=== PATIENT | male | born 1940 | race Caucasian/White ===

== ENCOUNTER 2016-08-24 14:44 | Inpatient (IN) | payer MEDICARE, MEDICAID ==
[2016-08-24] MEDS ORDERED: Sodium Chloride 0.9% 1,000 ML IV ONE ×2 (15:12→16:31)
[2016-08-24] MEDS ORDERED: Albuterol-Ipratrop 3 mg / 0.5 (3 ml) UD INH STA (15:13)
[2016-08-24 15:36] LABS: ABG ALLEN TEST N; DRAW SITE RB
[2016-08-24 15:39] LABS: BASO % 0.5 % (0.0-2.0); EOS # 0.7 K/uL (0.0-0.7); EOS % 10.5 % (0.0-4.0); HEMATOCRIT 42.5 % (35.0-51.0); LYMPH # 2.5 K/uL (1.0-4.3); LYMPH % 36.2 % (20.0-40.0); MEAN CELL VOLUME 97.9 fL (80.0-94.0); MEAN CORPUSCULAR HEMOGLOBIN 32.3 pg (27.0-31.0); MEAN PLATELET VOLUME 7.4 fL (7.2-11.7); MONO # 0.4 K/uL (0.0-0.8); MONO % 6.1 % (0.0-10.0); NRBC % 0.2 % (0.0-2.0); RED CELL DISTRIBUTION WIDTH 14.8 % (11.5-14.5); WHITE BLOOD COUNT 6.9 K/uL (4.8-10.8)
[2016-08-24 15:46] LABS: CHLORIDE 99 mmol/L (98-107); POTASSIUM 3.8 mmol/L (3.6-5.2); SODIUM 138 mmol/L (132-148)
[2016-08-24 15:48] LABS: GFR AFRICAN-AMERICAN > 60
[2016-08-24 15:49] LABS: ALB/GLOB RATIO 1.1 (1.0-2.1); ALKALINE PHOSPHATASE 72 U/L (38-126); ALT/SGPT 16 U/L (21-72); AST/SGOT 26 U/L (17-59); BILIRUBIN,TOTAL 0.5 mg/dL (0.2-1.3); BLOOD UREA NITROGEN 7 mg/dL (9-20); CALCIUM 9.1 mg/dl (8.6-10.4); CARBON DIOXIDE 23 mmol/L (22-30); GLUCOSE,RANDOM 99 mg/dL (75-110)
[2016-08-24 15:50] LABS: ALCOHOL SERUM 270 mg/dl (0-10)
--- NOTE | 2016-08-24 15:58 | CT ---
PROCEDURE: CT HEAD WITHOUT CONTRAST. HISTORY: change of mental status, intox COMPARISON: Comparison is made to 11/21/2015 TECHNIQUE: Axial computed tomography images were obtained through the head/brain without intravenous contrast. Radiation dose: Total exam DLP = 898.46 mGy-cm. This CT exam was performed using one or more of the following dose reduction techniques: Automated exposure control, adjustment of the mA and/or kV according to patient size, and/or use of iterative reconstruction technique. FINDINGS: HEMORRHAGE: No intracranial hemorrhage. BRAIN: No mass effect or edema. Atrophy and mild chronic microvascular white matter ischemic changes are again seen. VENTRICLES: Unremarkable. No hydrocephalus. CALVARIUM: Unremarkable. PARANASAL SINUSES: Mucosal thickening seen in the left sphenoid and ethmoid sinuses. Mild mucosal thickening seen in the left frontal sinus. MASTOID AIR CELLS: Unremarkable as visualized. No inflammatory changes. OTHER FINDINGS: None. IMPRESSION: No evidence of acute intracranial hemorrhage intracranial collection mass effect or midline shift. [id number] atrophy and mild chronic microvascular ischemic disease. Mild sinuses mucosal disease.
--- NOTE | 2016-08-24 16:15 | C.PDOC ---
History Of Present Illness 75 year old male presents to the ED by EMS after being found intoxicated in public and friends were concerned with his intoxication level or potentially diminished mental status. Patient states he drinks daily, appears disheveled, and alcohol on breath upon arrival. He denies any diarrhea, vomiting, or complaints at this time. Time Seen by Provider: 08/24/16 15:01 Chief Complaint (Nursing): Substance Abuse History Per: Patient, EMS History/Exam Limitations: no limitations Onset/Duration Of Symptoms: Hrs Additional History Per: Friend Past Medical History Reviewed: Historical Data, Nursing Documentation, Vital Signs Vital Signs: Last Vital Signs Temp 97.6 F 08/24/16 14:51 Pulse 79 08/24/16 15:33 Resp 17 08/24/16 15:33 BP 91/54 L 08/24/16 15:33 Pulse Ox 100 08/24/16 16:21 - Medical History PMH: Arthritis, COPD Family History: States: Unknown Family Hx - Social History Hx Tobacco Use: No Hx Alcohol Use: Yes Hx Substance Use: No - Immunization History Hx Tetanus Toxoid Vaccination: No Hx Influenza Vaccination: No Hx Pneumococcal Vaccination: No Review Of Systems Constitutional: Negative for: Fever, Chills, Sweats Cardiovascular: Negative for: Chest Pain, Palpitations Respiratory: Negative for: Cough, Shortness of Breath Gastrointestinal: Negative for: Nausea, Vomiting, Abdominal Pain, Diarrhea Physical Exam - Physical Exam Appears: Non-toxic, No Acute Distress, Other (disheveled and EtOH on breath ) Skin: Warm, Dry, No Rash Head: Atraumatic Eye(s): bilateral: Normal Inspection Oral Mucosa: Moist Neck: Normal ROM, Supple Chest: Symmetrical Cardiovascular: Rhythm Regular, No JVD Respiratory: No Rales, Rhonchi (scattered rhonci throughout lungs ), No Stridor , No Wheezing Gastrointestinal/Abdominal: Soft, No Tenderness, No Distention, No Guarding, No Rebound Extremity: Normal ROM, No Tenderness ED Course And Treatment - Laboratory Results Result Diagrams: 08/24/16 15:31 08/24/16 15:31 Lab Interpretation: Normal (trop neg, etoh 270 H, ABG wnl) ECG: Interpreted By Me ECG Rhythm: Sinus Rhythm, R BBB ECG Interpretation: Normal Rate From EC O2 Sat by Pulse Oximetry: 100 (room air ) Pulse Ox Interpretation: Normal - Radiology CXR: Interpreted by Me CXR Interpretation: Yes: Infiltrates (? plate atalectasis vs b/l lower lobe PNA) - Other Rad head CT X-Ray: Read By Radiologist (no acute findings) Reevaluation Time: 16:28 Reassessment Condition: Improved - Physician Consult Information Outcome Of Conversation: 1630: d/w Hospitalist- catering coordinator Medicine- ok for Tele Obs Disposition Doctor Will See Patient In The: Hospital Counseled Patient/Family Regarding: Studies Performed, Diagnosis - Disposition Disposition: HOSPITALIZED Disposition Time: 16:30 Condition: FAIR - Clinical Impression Clinical Impression: Alcohol intoxication, COPD exacerbation, Change in mental state - Scribe Statement The provider has reviewed the documentation as recorded by the Scribe Dana Doshi All medical record entries made by the Scribe were at my direction and personally dictated by me. I have reviewed the chart and agree that the record accurately reflects my personal performance of the history, physical exam, medical decision making, and the department course for this patient. I have also personally directed, reviewed, and agree with the discharge instructions and disposition.
[2016-08-24] MEDS ORDERED: cefTRIAXone IV 1 gm in Dextros 50 ML IV STA (16:31)
[2016-08-24] MEDS ORDERED: Azithromycin 500 MG in Sodium Chloride 0.9% 250 ML IVPB STA (16:31)
[2016-08-24] MEDS ORDERED: cefTRIAXone IV 1 gm in Dextros 50 ML IVPB ONE (16:40)
[2016-08-24] MEDS ORDERED: Azithromycin 500mg/250ML NS 500 MG/250 ML BAG IVPB ONE (16:40)
--- NOTE | 2016-08-24 16:57 | RAD ---
PROCEDURE: CHEST RADIOGRAPH, 1 VIEW HISTORY: SOB COMPARISON: Comparison is made to 02/01/2016 FINDINGS: LUNGS: Persistent elevation of the right hemidiaphragm. Prominent lung markings and reticular opacities are again seen. The lungs appear improved compared to the previous exam. PLEURA: No pneumothorax or pleural fluid seen. CARDIOVASCULAR: Normal. OSSEOUS STRUCTURES: No significant abnormalities. VISUALIZED UPPER ABDOMEN: Normal. OTHER FINDINGS: None. IMPRESSION: Prominent lung markings and small reticular opacities again seen. Elevation of the right hemidiaphragm.
[2016-08-24] MEDS ORDERED: Albuterol-Ipratrop 3 mg / 0.5 (3 ml) UD ONE ×2 (17:09→19:53)
[2016-08-24 17:15] LABS: URINE BILIRUBIN NEGATIVE (NEGATIVE); URINE BLOOD NEGATIVE (NEGATIVE); URINE COLOR Straw (YELLOW); URINE GLUCOSE (UA) NORMAL (Normal); URINE KETONE NEGATIVE (NEGATIVE); URINE LEUKOCYTE ESTERASE NEG Leu/uL (Negative); URINE PROTEIN NEGATIVE (NEGATIVE); URINE UROBILINOGEN NORMAL mg/dL (0.2-1.0); WBC URINE < 1 /hpf (0-5)
[2016-08-24] MEDS ORDERED: Multivitamin (MVI) 10 ML, Thiamine 100 MG, Folic Acid 1 MG in Sodium Chloride 0.9% 1,00... IV SCH (17:15)
[2016-08-24] MEDS ORDERED: Moxifloxacin IV 400mg/250ml NS 400 MG/250 ML BAG IVPB SCH (17:15)
[2016-08-24] MEDS ORDERED: guaiFENesin 100 mg/5 ml Syrup UD PO PRN (17:18)
--- NOTE | 2016-08-24 17:24 | CP.PCM.HP ---
<Christina Agosto - Last Filed: 08/24/16 17:19> History of Present Illness - History of Present Illness History of Present Illness: HPI: Patient is a 75 year old male with PMHx of COPD and alcohol use disorder presents to the ED after being found intoxicated in public. At time of examination the patient is still intoxicated and not cooperative with questions. Patient can not say why he is in the ED and changes the subject. Patient unable to quantify how much alcohol he drank this morning. Will attempt to obtain history of ROS when patient is sober. Other history obtained from patient's previous records. PMD: none PMHx: COPD Social Hx: could not be obtained Surgical Hx: could not be obtained Allergies: NKDA Present on Admission - Present on Admission Any Indicators Present on Admission: No Review of Systems - Review of Systems Systems not reviewed;Unavailable: Intoxicated, Uncooperative Past Patient History - Tetanus Immunizations Tetanus Immunization: Unknown - Past Medical History & Family History Past Medical History?: Yes - Past Social History Smoking Status: Heavy Smoker > 10 Cigarettes Daily - CARDIAC Other/Comment: unknown secondary to patient intoxication - PULMONARY Hx Chronic Obstructive Pulmonary Disease (COPD): Yes - NEUROLOGICAL Hx Neurological Disorder: No Other/Comment: unknown secondary to patient intoxication - HEENT Other/Comment: unknown secondary to patient intoxication - RENAL Hx Chronic Kidney Disease: No - ENDOCRINE/METABOLIC Hx Endocrine Disorders: No Other/Comment: unknown secondary to patient intoxication - HEMATOLOGICAL/ONCOLOGICAL Hx Blood Disorders: No Other/Comment: unknown secondary to patient intoxication - INTEGUMENTARY Other/Comment: unknown secondary to patient intoxication - MUSCULOSKELETAL/RHEUMATOLOGICAL Hx Arthritis: Yes - GASTROINTESTINAL Other/Comment: unknown secondary to patient intoxication - GENITOURINARY/GYNECOLOGICAL Other/Comment: unknown secondary to patient intoxication - PSYCHIATRIC Hx Substance Use: No - SURGICAL HISTORY Hx Surgeries: No Other/Comment: unknown secondary to patient intoxication - ANESTHESIA Hx Anesthesia: No Hx Anesthesia Reactions: No Meds Allergies/Adverse Reactions: Allergies Allergy/AdvReac Type Severity Reaction Status Date / Time No Known Allergies Allergy Verified 02/01/16 11:46 Physical Exam - Constitutional Appears: No Acute Distress, Unkempt Additional comments: Intoxicated - Head Exam Head Exam: ATRAUMATIC, NORMOCEPHALIC - Eye Exam Eye Exam: EOMI, Normal appearance - ENT Exam ENT Exam: Mucous Membranes Dry - Respiratory Exam Respiratory Exam: Rhonchi (rhonchi greater in bilateral lower lobes with inspiratory wheezing heard throughout ), Wheezes, NORMAL BREATHING PATTERN. absent: Accessory Muscle Use, Respiratory Distress - Cardiovascular Exam Cardiovascular Exam: REGULAR RHYTHM, +S1, +S2. absent: Tachycardia, Irregular Rhythm - GI/Abdominal Exam GI & Abdominal Exam: Soft. absent: Distended, Firm - Extremities Exam Extremities exam: Positive for: normal inspection. Negative for: pedal edema - Neurological Exam Neurological exam: Alert - Psychiatric Exam Psychiatric exam: Normal Mood Additional comments: intoxicated - Skin Skin Exam: Dry, Intact, Normal Color, Warm Results - Vital Signs Recent Vital Signs: Last Vital Signs Temp 97.6 F 08/24/16 14:51 Pulse 70 08/24/16 16:00 Resp 14 08/24/16 16:00 BP 106/55 L 08/24/16 16:00 Pulse Ox 100 08/24/16 16:31 - Labs Result Diagrams: 08/24/16 15:31 08/24/16 15:31 Assessment & Plan - Assessment and Plan (Free Text) Assessment: 1. Pneumonia * CXR- prominent lung markings and small reticular opacities * Afebrile, no leukocytosis * Patient has history of pneumonia (last treated in 01/2016), consider aspiration pnuemonia due to alcohol abuse * Received Azithromycin IV and Ceftriaxone IV x1 in ED * Start Avelox 400mg IV daily and Vanco 1gm IV daily * Duonebs 3ml INH q6h [place] * Robitussin 100ml q4h prn * f/u legionella, mycoplasma, influenza, procalcitonin * ABG 7.33/43/104/22.4 * SpO2 100% on 2L NC * f/u blood culture, sputum culture 2. Hypotension * BP 85/48 on admission * Received 1L bolus in ED--> BP 91/54 * Continue IV fluid bolus. If BP remains low will consider ICU consult 3. Hx COPD * Solumedrol 40mg IV q8h * Duonebs 3ml INH q6h [place] 4. Alcohol use disorder * Alcohol level 270 * Librium taper * [facility] protocol- seizure precautions, aspiration precautions, fall risk * Ativan 1mg IV q2h prn withdrawal * Banana bag @100cc/hr * Alcohol cessation counseling 5. Prophylactic measures * Lovenox 40mg SC daily * Protonix 40mg IV daily * SCDs <Rosales,Joe M - Last Filed: 09/01/16 13:03> Results - Vital Signs Recent Vital Signs: Last Vital Signs Temp 98.2 F 08/29/16 15:00 Pulse 92 H 08/29/16 15:30 Resp 20 08/29/16 15:00 BP 98/62 L 08/29/16 15:00 Pulse Ox 98 08/29/16 15:15 - Labs Result Diagrams: 08/28/16 19:01 08/29/16 07:05 Attending/Attestation - Attestation I have personally seen and examined this patient.: Yes I have fully participated in the care of the patient.: Yes I have reviewed all pertinent clinical information: Yes Notes (Text): 09/01/16 13:02 Patient was seen and examined at bedside with the resident at the time of admission. This is a late computer entry I discussed the plan of care with the resident and agree with the history and physical and assessment/plan but the resident.
[2016-08-24] MEDS ORDERED: Sodium Chloride 0.9% 1,000 ML ONE (18:11)
[2016-08-24] MEDS: Sodium Chloride 0.9% 1,000 ML IV SCH (18:23)
[2016-08-24] MEDS: Vancomycin 1 gm/NS 200 ml 1 GM/200 ML BAG IVPB SCH (18:24)
[2016-08-24] MEDS: Multivitamin (MVI) 10 ML, Thiamine 100 MG, Folic Acid 1 MG in Sodium Chloride 0.9% 1,00... IV SCH (18:24)
[2016-08-24 18:34] LABS: LEGIONELLA AG URINE NEGATIVE (NEGATIVE)
[2016-08-24] MEDS: MethylPREDNISolone 40 mg Vial IVP SCH (19:39)
[2016-08-24] MEDS: Albuterol-Ipratrop 3 mg / 0.5 (3 ml) UD INH SCH (19:40)
[2016-08-24] MEDS ORDERED: MethylPREDNISolone 40 mg Vial ONE (19:41)
[2016-08-25] MEDS: Albuterol-Ipratrop 3 mg / 0.5 (3 ml) UD INH SCH ×5 (01:32→19:35)
[2016-08-25] MEDS: MethylPREDNISolone 40 mg Vial IVP SCH ×3 (04:07→20:41)
[2016-08-25 07:12] LABS: BASO % 0.4 % (0.0-2.0); HEMATOCRIT 37.6 % (35.0-51.0); LYMPH # 0.6 K/uL (1.0-4.3); LYMPH % 11.3 % (20.0-40.0); MEAN CELL VOLUME 98.1 fL (80.0-94.0); MEAN CORPUSCULAR HEMOGLOBIN 32.2 pg (27.0-31.0); MEAN CORPUSCULAR HGB CONC 32.8 g/dL (33.0-37.0); MEAN PLATELET VOLUME 7.9 fL (7.2-11.7); MONO # 0.1 K/uL (0.0-0.8); MONO % 1.5 % (0.0-10.0); NRBC % 0.1 % (0.0-2.0); RED CELL DISTRIBUTION WIDTH 14.6 % (11.5-14.5); WHITE BLOOD COUNT 5.7 K/uL (4.8-10.8)
[2016-08-25 07:30] LABS: CHLORIDE 103 mmol/L (98-107); POTASSIUM 4.1 mmol/L (3.6-5.2); SODIUM 136 mmol/L (132-148)
[2016-08-25 07:32] LABS: ALKALINE PHOSPHATASE 67 U/L (38-126); AST/SGOT 20 U/L (17-59); BILIRUBIN,TOTAL 0.4 mg/dL (0.2-1.3); CARBON DIOXIDE 22 mmol/L (22-30); GFR AFRICAN-AMERICAN > 60; TOTAL PROTEIN 7.3 g/dL (6.3-8.3)
[2016-08-25 07:33] LABS: ALT/SGPT 16 U/L (21-72); BLOOD UREA NITROGEN 7 mg/dL (9-20); CALCIUM 8.3 mg/dl (8.6-10.4); GLUCOSE,RANDOM 146 mg/dL (75-110)
--- NOTE | 2016-08-25 07:50 | CP.PCM.PN ---
<Ros Bill - Last Filed: 08/25/16 14:58> Subjective - Date & Time of Evaluation Date of Evaluation: 08/25/16 Time of Evaluation: 09:00 - Subjective Subjective: PGY1 Medicine note for Dr. Rueda Patient seen and examined at bedside. Patient was AO x 2 to self and time but did not know which city he was in. He was preoccupied with insurance claims and the hospital staff . He continued to complain of a productive cough and some difficulty breathing and some diffuse abdominal pain which radiated to his left flank. He was also complaining of nausea and vomiting although could not quantify how much he vomited. He denied fever, chills, chest pain, palpitations , urinary complaints, pain in his legs bilaterally. Patient reported he had not had a BM in 3 days. Objective - Vital Signs/Intake and Output Vital Signs (last 24 hours): Temp Pulse Resp BP Pulse Ox 97.4 F L 80 20 103/64 96 08/24/16 23:35 08/24/16 23:35 08/24/16 23:35 08/24/16 23:35 08/24/16 23:35 - Medications Medications: Current Medications Albuterol/Ipratropium (Duoneb 3 Mg/0.5 Mg (3 Ml) Ud) 3 ml INH RQ6 [facility] Last Admin: 08/25/16 07:16 Dose: 3 ml Chlordiazepoxide (Librium) 25 mg PO Q6 [facility] PRN Reason: Taper Stop: 08/28/16 17:59 Last Admin: 08/25/16 06:13 Dose: 25 mg Enoxaparin Sodium (Lovenox) 40 mg SC DAILY [facility] Guaifenesin (Robitussin) 100 mg PO Q4H PRN PRN Reason: Cough Sodium Chloride (Sodium Chloride 0.9%) 1,000 mls @ 100 mls/hr IV .Q10H [facility] Last Admin: 08/24/16 18:23 Dose: 100 mls/hr Multivitamins/Vitamin C 10 ml/Thiamine HCl 100 mg/ Folic Acid 1 mg/ Sodium Chloride 1,011.2 mls @ 100 mls/hr IV DAILY@1800 [facility] Last Admin: 08/24/16 18:24 Dose: 100 mls/hr Vancomycin/Sodium Chloride (Vancocin) 1 gm in 200 mls @ 166.7 mls/hr IVPB Q24H [facility] Stop: 08/29/16 18:01 Last Admin: 08/24/16 18:24 Dose: 166.7 mls/hr Moxifloxacin HCl (Avelox Iv 400mg/250ml Ns) 400 mg in 250 mls @ 167 mls/hr IVPB Q24H [facility] Lorazepam (Ativan) 1 mg IVP Q2H PRN PRN Reason: Symptoms of alcohol withdrawl Methylprednisolone (Solu-Medrol) 40 mg IVP Q8H [facility] Last Admin: 08/25/16 04:07 Dose: 40 mg Pantoprazole Sodium (Protonix Inj) 40 mg IVP DAILY [facility] Last Admin: 08/24/16 18:23 Dose: 40 mg - Labs Labs: 08/25/16 07:05 08/25/16 07:05 PT 11.7 SECONDS (9.7-12.2) 08/24/16 15:31 INR 1.0 08/24/16 15:31 APTT 32 SECONDS (21-34) 08/24/16 15:31 - Constitutional Appears: No Acute Distress, Unkempt - Head Exam Head Exam: NORMAL INSPECTION - Eye Exam Eye Exam: Normal appearance. absent: Conjunctival injection, Scleral icterus - ENT Exam ENT Exam: Mucous Membranes Moist - Neck Exam Neck Exam: Normal Inspection. absent: Tenderness - Respiratory Exam Respiratory Exam: Rhonchi, Wheezes, NORMAL BREATHING PATTERN. absent: Accessory Muscle Use, Clear to Ausculation Bilateral, Respiratory Distress - Cardiovascular Exam Cardiovascular Exam: REGULAR RHYTHM, +S1, +S2. absent: Murmur - GI/Abdominal Exam GI & Abdominal Exam: Soft, Tenderness (diffuse to palpation), Normal Bowel Sounds. absent: Firm, Guarding, Rigid, Hernia - Extremities Exam Extremities Exam: Joint Swelling (digits bilaterally), Normal Inspection. absent: Pedal Edema, Tenderness - Back Exam Back Exam: NORMAL INSPECTION. absent: rash noted - Neurological Exam Neurological Exam: Alert, Awake - Psychiatric Exam Psychiatric exam: Normal Affect, Normal Mood - Skin Skin Exam: Dry, Intact, Normal Color, Warm Assessment and Plan - Assessment and Plan (Free Text) Assessment: 75 year old male with PMHx of COPD and alcohol use disorder presents to the ED after being found intoxicated in public Plan: Pneumonia * CXR- prominent lung markings and small reticular opacities * Afebrile, no leukocytosis * Patient has history of pneumonia (last treated in 01/2016), consider aspiration pnuemonia due to alcohol abuse * Received Azithromycin IV and Ceftriaxone IV x1 in ED * Start Avelox 400mg IV daily and Vanco 1gm IV daily * Duonebs 3ml INH q4h [place] * Phenergan 12.5mg po q6 prn for cough * Mucinex 600mg po bid * f/u legionella, mycoplasma, influenza, procalcitonin * ABG 7.33/43/104/22.4 * SpO2 100% on 2L NC * f/u blood culture, sputum culture Hypotension * under control 139/74 this AM * BP 85/48 on admission * Received 1L bolus in ED--> BP 91/54 * Continue IV fluid bolus. Hx COPD * Solumedrol 40mg IV q8h * Duonebs 3ml INH q4h [place] Alcohol use disorder * Alcohol level 270 * Librium taper * [facility] protocol- seizure precautions, aspiration precautions, fall risk * Ativan 1mg IV q2h prn withdrawal * Alcohol cessation counseling * Alcohol level 27 * f/u ammonia Constipation * f/u abdominal x-ray * Lactulose 20hm po bid Prophylactic measures * Lovenox 40mg SC daily * Protonix 40mg IV daily * Zofran 4mg ivp q6h prn * SCDs * NS @ 100cc/hr * heart healthy diet Plan discussed with Dr. Mohit Bill PGY1 <Marquez Rueda - Last Filed: 09/26/16 13:21> Objective - Vital Signs/Intake and Output Vital Signs (last 24 hours): Temp Pulse Resp BP Pulse Ox 98.2 F 92 H 20 98/62 L 98 08/29/16 15:00 08/29/16 15:30 08/29/16 15:00 08/29/16 15:00 08/29/16 15:15 - Labs Labs: 08/28/16 19:01 08/29/16 07:05 PT 11.7 SECONDS (9.7-12.2) 08/24/16 15:31 INR 1.0 08/24/16 15:31 APTT 32 SECONDS (21-34) 08/24/16 15:31 Attending/Attestation - Attestation I have personally seen and examined this patient.: Yes I have fully participated in the care of the patient.: Yes I have reviewed all pertinent clinical information, including history, physical exam and plan: Yes Notes (Text): Patient Seen and examined with the resident. Agree with the resident's evaluation, assessment and plan. 75 year old male with PMHx of COPD and alcohol use disorder presents to the ED after being found intoxicated in public Pneumonia Hypotension Hx COPD
[2016-08-25] MEDS: Sodium Chloride 0.9% 1,000 ML IV SCH (08:56)
[2016-08-25] MEDS: Enoxaparin 40 mg Syringe SC SCH (09:34)
[2016-08-25] MEDS ORDERED: Promethazine 12.5 mg/10 ml Syrup PO PRN (14:48)
[2016-08-25] MEDS: Moxifloxacin IV 400mg/250ml NS 400 MG/250 ML BAG IVPB SCH (18:09)
[2016-08-25] MEDS: Multivitamin (MVI) 10 ML, Thiamine 100 MG, Folic Acid 1 MG in Sodium Chloride 0.9% 1,00... IV SCH (18:10)
[2016-08-25] MEDS: guaiFENesin 600 mg ER Tab PO SCH (18:11)
[2016-08-25] MEDS: Vancomycin 1 gm/NS 200 ml 1 GM/200 ML BAG IVPB SCH (20:38)
[2016-08-26] MEDS: MethylPREDNISolone 40 mg Vial IVP SCH ×3 (03:31→20:35)
--- NOTE | 2016-08-26 06:18 | CARD ---
APPROVED REPORT EKG Measurement Heart [id number] <Conclusion> Normal sinus rhythm Left axis deviation Right bundle branch block Abnormal ECG
--- NOTE | 2016-08-26 07:02 | CP.PCM.PN ---
<FlyRos - Last Filed: 08/26/16 16:37> Subjective - Date & Time of Evaluation Date of Evaluation: 08/26/16 Time of Evaluation: 10:15 - Subjective Subjective: PGY1 Medicine note for Dr. Rueda Pt seen and examined at bedside. Nursing reports that he had 5 episodes of loose stool yesterday and last night. Today, pt is comfortable, but continues to be irritable and somewhat confused. Pt states that he has a pain at the bottom of his right ribs when he coughs repeatedly and abdominal pain. Pt states that the pain in his L flank is greatly helped by the pain medications. Pt denies headache, dizziness, chest pain, palpitations, shortness of breath, nausea, vomiting, dysuria, and pain in his legs b/l. Objective - Vital Signs/Intake and Output Vital Signs (last 24 hours): Temp Pulse Resp BP Pulse Ox 98.2 F 75 20 138/74 97 08/26/16 04:20 08/26/16 04:20 08/26/16 04:20 08/26/16 04:20 08/26/16 00:00 Intake and Output: 08/26/16 08/26/16 06:59 18:59 Intake Total 1999 Balance 1999 - Medications Medications: Current Medications Albuterol/Ipratropium (Duoneb 3 Mg/0.5 Mg (3 Ml) Ud) 3 ml INH RQ4 [facility] Last Admin: 08/25/16 19:35 Dose: 3 ml Chlordiazepoxide (Librium) 25 mg PO TID [facility] PRN Reason: Taper Stop: 08/28/16 17:59 Last Admin: 08/25/16 18:10 Dose: 25 mg Enoxaparin Sodium (Lovenox) 40 mg SC DAILY [facility] Last Admin: 08/25/16 09:34 Dose: 40 mg Guaifenesin (Mucinex La) 600 mg PO BID [facility] Last Admin: 08/25/16 18:11 Dose: 600 mg Sodium Chloride (Sodium Chloride 0.9%) 1,000 mls @ 100 mls/hr IV .Q10H [facility] Last Admin: 08/25/16 08:56 Dose: 100 mls/hr Multivitamins/Vitamin C 10 ml/Thiamine HCl 100 mg/ Folic Acid 1 mg/ Sodium Chloride 1,011.2 mls @ 100 mls/hr IV DAILY@1800 [facility] Last Admin: 08/25/16 18:10 Dose: 100 mls/hr Vancomycin/Sodium Chloride (Vancocin) 1 gm in 200 mls @ 166.7 mls/hr IVPB Q24H [facility] Stop: 08/29/16 18:01 Last Admin: 08/25/16 20:38 Dose: 166.7 mls/hr Moxifloxacin HCl (Avelox Iv 400mg/250ml Ns) 400 mg in 250 mls @ 167 mls/hr IVPB Q24H [facility] Last Admin: 08/25/16 18:09 Dose: 167 mls/hr Lactulose (Enulose) 20 gm PO BID [facility] Last Admin: 08/25/16 18:23 Dose: Not Given Lorazepam (Ativan) 1 mg IVP Q2H PRN PRN Reason: Symptoms of alcohol withdrawl Methylprednisolone (Solu-Medrol) 40 mg IVP Q8H [facility] Last Admin: 08/26/16 03:31 Dose: 40 mg Ondansetron HCl (Zofran Inj) 4 mg IVP Q6H PRN PRN Reason: Nausea/Vomiting Pantoprazole Sodium (Protonix Inj) 40 mg IVP DAILY [facility] Last Admin: 08/25/16 09:34 Dose: 40 mg Promethazine HCl (Phenergan Syrup) 12.5 mg PO Q6 PRN PRN Reason: Cough - Labs Labs: 08/25/16 07:05 08/25/16 07:05 PT 11.7 SECONDS (9.7-12.2) 08/24/16 15:31 INR 1.0 08/24/16 15:31 APTT 32 SECONDS (21-34) 08/24/16 15:31 - Constitutional Appears: No Acute Distress, Unkempt - Head Exam Head Exam: NORMAL INSPECTION - Eye Exam Eye Exam: Normal appearance. absent: Conjunctival injection, Scleral icterus - ENT Exam ENT Exam: Mucous Membranes Moist - Neck Exam Neck Exam: Normal Inspection. absent: Tenderness - Respiratory Exam Respiratory Exam: Rhonchi, Wheezes, NORMAL BREATHING PATTERN. absent: Accessory Muscle Use, Rales, Respiratory Distress - Cardiovascular Exam Cardiovascular Exam: REGULAR RHYTHM, +S1, +S2. absent: Murmur - GI/Abdominal Exam GI & Abdominal Exam: Soft, Tenderness (to palpation), Normal Bowel Sounds. absent: Distended, Firm, Guarding, Rigid - Extremities Exam Extremities Exam: Joint Swelling (digits bilaterally). absent: Pedal Edema, Tenderness - Neurological Exam Neurological Exam: Alert, Awake - Psychiatric Exam Psychiatric exam: Normal Affect Additional comments: irritable - Skin Skin Exam: Dry, Intact, Normal Color, Warm Assessment and Plan - Assessment and Plan (Free Text) Assessment: 75 year old male with PMHx of COPD and alcohol use disorder presents to the ED after being found intoxicated in public Plan: Pneumonia * CXR- prominent lung markings and small reticular opacities * Afebrile * WBC 13.5 this AM 08/26 * Patient has history of pneumonia (last treated in 01/2016), consider aspiration pnuemonia due to alcohol abuse * Avelox 400mg IV daily * Vancocin 1gm IV daily * Duonebs 3ml INH q4h [facility] * Phenergan 12.5mg po q6 prn for cough * Mucinex 600mg po bid * f/u legionella, mycoplasma, influenza, procalcitonin * ABG 7.33/43/104/22.4 * SpO2 100% on 2L NC * blood culture prelim negative * influenza negative * legionella negative * mycoplasma negative * f/u sputum culture Hypotension * under control * BP 85/48 on admission * Received 1L bolus in ED--> BP 91/54 * Continue IV fluid bolus. Hx COPD * Solumedrol 40mg IV q8h * Duoneb 3ml INH q4h [facility] * Naproxen 275mg po q12 prn pain with coughing Alcohol use disorder * Alcohol level 270 * Librium taper * [facility] protocol- seizure precautions, aspiration precautions, fall risk * Ativan 1mg IV q2h prn withdrawal * Alcohol cessation counseling * Alcohol level 270 * Ammonia 17 Abdominal pain * negative abdominal x-ray for clinical presentation * f/u CT abdomen/pelvis * Lactulose 20hm po daily Prophylactic measures * Lovenox 40mg SC daily * Protonix 40mg IVP daily * Zofran 4mg ivp q6h prn * SCDs * NS @ 100cc/hr * heart healthy diet Plan discussed with Dr. Mohit Bill PGY1 <Marquez Rueda - Last Filed: 09/29/16 16:48> Objective - Vital Signs/Intake and Output Vital Signs (last 24 hours): Temp Pulse Resp BP Pulse Ox 98.2 F 92 H 20 98/62 L 98 08/29/16 15:00 08/29/16 15:30 08/29/16 15:00 08/29/16 15:00 08/29/16 15:15 - Labs Labs: 08/28/16 19:01 08/29/16 07:05 PT 11.7 SECONDS (9.7-12.2) 08/24/16 15:31 INR 1.0 08/24/16 15:31 APTT 32 SECONDS (21-34) 08/24/16 15:31 Attending/Attestation - Attestation I have personally seen and examined this patient.: Yes I have fully participated in the care of the patient.: Yes I have reviewed all pertinent clinical information, including history, physical exam and plan: Yes Notes (Text): Patient Seen and examined with the resident. Agree with the resident's evaluation, assessment and plan. 75 year old male with PMHx of COPD and alcohol use disorder presents to the ED after being found intoxicated in public Plan: Pneumonia * CXR- prominent lung markings and small reticular opacities * Afebrile * WBC 13.5 this AM 08/26 * Patient has history of pneumonia (last treated in 01/2016), consider aspiration pnuemonia due to alcohol abuse * Avelox 400mg IV daily * Vancocin 1gm IV daily * Duonebs 3ml INH q4h [facility] * Phenergan 12.5mg po q6 prn for cough * Mucinex 600mg po bid * f/u legionella, mycoplasma, influenza, procalcitonin * ABG 7.33/43/104/22.4 * SpO2 100% on 2L NC * blood culture prelim negative * influenza negative * legionella negative * mycoplasma negative * f/u sputum culture Hypotension * under control * BP 85/48 on admission * Received 1L bolus in ED--> BP 91/54 * Continue IV fluid bolus. Hx COPD * Solumedrol 40mg IV q8h * Duoneb 3ml INH q4h [facility] * Naproxen 275mg po q12 prn pain with coughing Alcohol use disorder * Alcohol level 270 * Librium taper * [facility] protocol- seizure precautions, aspiration precautions, fall risk * Ativan 1mg IV q2h prn withdrawal * Alcohol cessation counseling * Alcohol level 270 * Ammonia 17 Abdominal pain * negative abdominal x-ray for clinical presentation * f/u CT abdomen/pelvis * Lactulose 20hm po daily
[2016-08-26] MEDS: Albuterol-Ipratrop 3 mg / 0.5 (3 ml) UD INH SCH ×4 (07:23→20:32)
[2016-08-26 08:44] LABS: HEMATOCRIT 38.2 % (35.0-51.0); LYMPH # 0.9 K/uL (1.0-4.3); MEAN CELL VOLUME 96.7 fL (80.0-94.0); MEAN CORPUSCULAR HGB CONC 33.1 g/dL (33.0-37.0); MEAN PLATELET VOLUME 8.2 fL (7.2-11.7); MONO # 0.3 K/uL (0.0-0.8); MONO % 2.5 % (0.0-10.0); PLATELET COUNT 353 K/uL (130-400); RED CELL DISTRIBUTION WIDTH 14.9 % (11.5-14.5)
[2016-08-26 08:52] LABS: WHITE BLOOD COUNT 13.5 K/uL (4.8-10.8)
[2016-08-26 09:03] LABS: CHLORIDE 102 mmol/L (98-107)
[2016-08-26 09:04] LABS: POTASSIUM 3.5 mmol/L (3.6-5.2); SODIUM 137 mmol/L (132-148)
[2016-08-26 09:06] LABS: ALKALINE PHOSPHATASE 70 U/L (38-126); AST/SGOT 17 U/L (17-59); BILIRUBIN,TOTAL 0.4 mg/dL (0.2-1.3); CARBON DIOXIDE 23 mmol/L (22-30); GFR AFRICAN-AMERICAN > 60; TOTAL PROTEIN 6.9 g/dL (6.3-8.3)
[2016-08-26 09:07] LABS: ALT/SGPT 22 U/L (21-72); BLOOD UREA NITROGEN 14 mg/dL (9-20); CALCIUM 8.9 mg/dl (8.6-10.4); GLUCOSE,RANDOM 142 mg/dL (75-110); PHOSPHOROUS 3.1 mg/dL (2.5-4.5)
[2016-08-26] MEDS ORDERED: Potassium Chloride 20 mEq ER Tab PO ONE ×2 (09:24→10:45)
[2016-08-26 09:32] LABS: NEUTROPHIL 88 % (50-75); TOTAL CELLS COUNTED 100
[2016-08-26] MEDS: guaiFENesin 600 mg ER Tab PO SCH ×2 (10:41→20:41)
[2016-08-26] MEDS: Enoxaparin 40 mg Syringe SC SCH (10:41)
[2016-08-26 11:15] LABS: C DIFF TOXIN A B NEGATIVE (NEGATIVE)
[2016-08-26] MEDS ORDERED: Naproxen 275 mg Tab PO PRN (11:18)
[2016-08-26] MEDS ORDERED: Iohexol 240 (50 ml) PO ONE (12:00)
--- NOTE | 2016-08-26 12:56 | RAD ---
HISTORY: Unspecified abdominal pain. COMPARISON: No prior. FINDINGS: BOWEL: Normal. No obstruction. No free air. BONES: Normal. OTHER FINDINGS: None. IMPRESSION: No significant or acute findings to account for/ related to the clinical presentation.
[2016-08-26] MEDS: Sodium Chloride 0.9% 1,000 ML IV SCH (13:22)
[2016-08-26 15:22] LABS: FECAL LEUKOCYTES NEGATIVE (NEGATIVE)
[2016-08-26] MEDS: Moxifloxacin IV 400mg/250ml NS 400 MG/250 ML BAG IVPB SCH (17:17)
[2016-08-26] MEDS: Multivitamin (MVI) 10 ML, Thiamine 100 MG, Folic Acid 1 MG in Sodium Chloride 0.9% 1,00... IV SCH (17:18)
--- NOTE | 2016-08-26 17:49 | CT ---
PROCEDURE: CT Abdomen and Pelvis without IV contrast. HISTORY: abdominal pain COMPARISON: CT chest without contrast performed 02/05/16, CT of the abdomen and pelvis with contrast performed 11/21/15 TECHNIQUE: Contiguous axial images of the abdomen and pelvis. Oral contrast was administered. No IV contrast given. Coronal and Sagittal reformats generated. Radiation dose: Total exam DLP = 688.24 mGy-cm. This CT exam was performed using one or more of the following dose reduction techniques: Automated exposure control, adjustment of the mA and/or kV according to patient size, and/or use of iterative reconstruction technique. FINDINGS: There is limited evaluation of the solid organs without the administration of IV contrast. LOWER THORAX: Emphysema. 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 Right lower lobe atelectasis or pneumonia. Small hiatal hernia. Gastroesophageal reflux. LIVER: Hepatic calcifications, likely granulomas. GALLBLADDER AND BILE DUCTS: Unremarkable unenhanced appearance. PANCREAS: Unremarkable unenhanced appearance. SPLEEN: Unremarkable unenhanced appearance. ADRENALS: Bilateral adrenal gland hypertrophy. KIDNEYS AND URETERS: No hydronephrosis or obstructing renal calculus. BLADDER: The urinary bladder appears unremarkable. REPRODUCTIVE: The prostate gland measures approximately 3.6 x 3.9 cm. Bilateral hydroceles. APPENDIX: The appendix appears within normal limits of caliber. No secondary signs of acute appendicitis. BOWEL: The stomach is nondistended. The bowel loops appear within normal limits of caliber without evidence of intestinal obstruction. Extensive diverticulosis throughout the colon without CT evidence of acute diverticulitis. Question colonic wall thickening at the level of the cecum/right colon which may be seen in the setting of colitis (i.e. infectious, inflammatory, ischemic); correlate clinically. When clinically feasible, recommend follow-up with colonoscopy in order to exclude possibility of underlying neoplasm. PERITONEUM: No significant free fluid. No definite free air. LYMPH NODES: No bulky lymphadenopathy identified. VASCULATURE: No aortic aneurysm. BONES: Multilevel degenerative changes. OTHER FINDINGS: Fat containing right inguinal hernia. Tiny fat containing umbilical hernia. IMPRESSION: Extensive diverticulosis throughout the colon without CT evidence of acute diverticulitis. Question colonic wall thickening at the level of the cecum/right colon which may be seen in the setting of colitis (i.e. infectious, inflammatory, ischemic); correlate clinically. When clinically feasible, recommend follow-up with colonoscopy in order to exclude possibility of underlying neoplasm. Emphysema. 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 Right lower lobe atelectasis or pneumonia. Bilateral hydroceles. Additional findings as above.
[2016-08-26] MEDS: Vancomycin 1 gm/NS 200 ml 1 GM/200 ML BAG IVPB SCH (20:35)
[2016-08-27] MEDS: MethylPREDNISolone 40 mg Vial IVP SCH ×2 (03:50→22:57)
[2016-08-27] MEDS: Albuterol-Ipratrop 3 mg / 0.5 (3 ml) UD INH SCH ×6 (03:50→19:56)
--- NOTE | 2016-08-27 07:07 | CP.PCM.PN ---
<FlyRos - Last Filed: 08/27/16 14:05> Subjective - Date & Time of Evaluation Date of Evaluation: 08/27/16 Time of Evaluation: 09:15 - Subjective Subjective: PGY1 Medicine note for Dr. Rueda Pt seen and examined at bedside. Nursing reports 2 episodes of loose stool in the evening and night. Today the patient is still somewhat confused, but he says he is feeling better and states that he is eating very well. Pt states that he still has pain in his right abdomen when he coughs. He states that the pain medicine is helping, but it hurts in between doses. He continues to complain of shortness of breath at times and a cough. Pt denies fever, chills, headache, dizziness, chest pain, palpitations, nausea, vomiting, constipation, or leg pain/swelling. Patient was requesting more food as he is very hungry. Objective - Vital Signs/Intake and Output Vital Signs (last 24 hours): Temp Pulse Resp BP Pulse Ox 98 F 98 H 20 139/76 96 08/26/16 23:45 08/27/16 00:00 08/26/16 23:45 08/26/16 23:45 08/26/16 23:45 Intake and Output: 08/27/16 08/27/16 06:59 18:59 Intake Total 2800 Output Total 600 Balance 2200 - Medications Medications: Current Medications Albuterol/Ipratropium (Duoneb 3 Mg/0.5 Mg (3 Ml) Ud) 3 ml INH RQ4 [facility] Last Admin: 08/27/16 03:50 Dose: 3 ml Chlordiazepoxide (Librium) 25 mg PO BID [facility] PRN Reason: Taper Stop: 08/28/16 17:59 Last Admin: 08/26/16 19:11 Dose: 25 mg Enoxaparin Sodium (Lovenox) 40 mg SC DAILY [facility] Last Admin: 08/26/16 10:41 Dose: 40 mg Guaifenesin (Mucinex La) 600 mg PO BID [facility] Last Admin: 08/26/16 20:41 Dose: 600 mg Sodium Chloride (Sodium Chloride 0.9%) 1,000 mls @ 100 mls/hr IV .Q10H [facility] Last Admin: 08/26/16 13:22 Dose: 100 mls/hr Multivitamins/Vitamin C 10 ml/Thiamine HCl 100 mg/ Folic Acid 1 mg/ Sodium Chloride 1,011.2 mls @ 100 mls/hr IV DAILY@1800 [facility] Last Admin: 08/26/16 17:18 Dose: 100 mls/hr Vancomycin/Sodium Chloride (Vancocin) 1 gm in 200 mls @ 166.7 mls/hr IVPB Q24H [facility] Stop: 08/29/16 18:01 Last Admin: 08/26/16 20:35 Dose: 166.7 mls/hr Moxifloxacin HCl (Avelox Iv 400mg/250ml Ns) 400 mg in 250 mls @ 167 mls/hr IVPB Q24H [facility] Last Admin: 08/26/16 17:17 Dose: 167 mls/hr Lactulose (Enulose) 20 gm PO DAILY [facility] Lorazepam (Ativan) 1 mg IVP Q2H PRN PRN Reason: Symptoms of alcohol withdrawl Methylprednisolone (Solu-Medrol) 40 mg IVP Q8H [facility] Last Admin: 08/27/16 03:50 Dose: 40 mg Naproxen (Anaprox) 275 mg PO Q12 PRN PRN Reason: Pain, moderate (4-7) Last Admin: 08/26/16 20:46 Dose: 275 mg Ondansetron HCl (Zofran Inj) 4 mg IVP Q6H PRN PRN Reason: Nausea/Vomiting Pantoprazole Sodium (Protonix Inj) 40 mg IVP DAILY [facility] Last Admin: 08/26/16 10:41 Dose: 40 mg Promethazine HCl (Phenergan Syrup) 12.5 mg PO Q6 PRN PRN Reason: Cough - Labs Labs: PT 11.7 SECONDS (9.7-12.2) 08/24/16 15:31 INR 1.0 08/24/16 15:31 APTT 32 SECONDS (21-34) 08/24/16 15:31 - Constitutional Appears: No Acute Distress, Unkempt - Head Exam Head Exam: NORMAL INSPECTION - Eye Exam Eye Exam: Normal appearance. absent: Conjunctival injection, Scleral icterus - ENT Exam ENT Exam: Mucous Membranes Moist - Neck Exam Neck Exam: Full ROM, Normal Inspection - Respiratory Exam Respiratory Exam: Rhonchi, Wheezes, NORMAL BREATHING PATTERN. absent: Accessory Muscle Use, Decreased Breath Sounds, Rales, Respiratory Distress - Cardiovascular Exam Cardiovascular Exam: REGULAR RHYTHM, RRR, +S1, +S2. absent: Murmur - GI/Abdominal Exam GI & Abdominal Exam: Soft, Tenderness (to palpation), Normal Bowel Sounds. absent: Distended, Firm, Guarding, Rigid - Extremities Exam Extremities Exam: Joint Swelling (digits b/l). absent: Pedal Edema - Back Exam Back Exam: NORMAL INSPECTION. absent: rash noted, tenderness - Neurological Exam Neurological Exam: Alert, Awake - Psychiatric Exam Psychiatric exam: Normal Affect Additional comments: irritable - Skin Skin Exam: Dry, Intact, Normal Color, Warm Assessment and Plan - Assessment and Plan (Free Text) Assessment: 75 year old male with PMHx of COPD and alcohol use disorder presents to the ED after being found intoxicated in public Plan: Pneumonia * CXR- prominent lung markings and small reticular opacities * Afebrile * WBC 10.3 this AM * Patient has history of pneumonia (last treated in 01/2016), consider aspiration pnuemonia due to alcohol abuse * Avelox 400mg IV daily * Duonebs 3ml INH q4h [facility] * Phenergan 12.5mg po q6 prn for cough * Mucinex 600mg po bid * Solumedrol 40mg IVP q12 * blood culture prelim negative x 2 * legionella negative * mycoplasma negative * f/u sputum culture Hypotension * resolved * BP 85/48 on admission Hx COPD * Solumedrol 40mg IV q8h * Duoneb 3ml INH q4h [facility] * Naproxen 275mg po q12 prn pain with coughing Alcohol use disorder * Alcohol level 270 * Librium taper * [facility] protocol- seizure precautions, aspiration precautions, fall risk * Ativan 1mg IV q2h prn withdrawal * Folic acid 1mg po daily * Multivitamins 1 tab po daily * Thiamine 100mg po daily * Alcohol cessation counseling * Alcohol level 270 * Ammonia 17 Abdominal pain * negative abdominal x-ray for clinical presentation * CT abdomen/pelvis: extensive diverticulosis throughout colon without CT evidence of acute diverticulitis. Question colonic wall thickening at level of cecum/Right colon which may be seen in setting of colitis; correlate clinically. Recommended colonoscopy on f/u. Emphysema. Chronic fibrotic IS diseae. Right lower lobe atelectasis/pneumonia. Bilateral hydroceles. * Lactulose 20hm po daily Prophylactic measures * Lovenox 40mg SC daily * Protonix 40mg IVP daily * Zofran 4mg IVP q6h prn * SCDs * Regular diet Plan discussed with Dr. Mohit Bill PGY1 <Marquez Rueda - Last Filed: 09/30/16 15:25> Objective - Vital Signs/Intake and Output Vital Signs (last 24 hours): Temp Pulse Resp BP Pulse Ox 98.2 F 92 H 20 98/62 L 98 08/29/16 15:00 08/29/16 15:30 08/29/16 15:00 08/29/16 15:00 08/29/16 15:15 - Labs Labs: 08/28/16 19:01 08/29/16 07:05 PT 11.7 SECONDS (9.7-12.2) 08/24/16 15:31 INR 1.0 08/24/16 15:31 APTT 32 SECONDS (21-34) 08/24/16 15:31 Attending/Attestation - Attestation I have personally seen and examined this patient.: Yes I have fully participated in the care of the patient.: Yes I have reviewed all pertinent clinical information, including history, physical exam and plan: Yes Notes (Text): Patient Seen and examined with the resident. Agree with the resident's evaluation, assessment and plan. 75 year old male with PMHx of COPD and alcohol use disorder presents to the ED after being found intoxicated in public Plan: Pneumonia Hypotension Hx COPD with acute exacerbation on steroids New complaint loose stool likely due to lactulose Alcohol use disorder with acute intoxication Alcohol abuse with delirium tremens Abdominal pain workup in progress
[2016-08-27 08:10] LABS: BASO % 0.3 % (0.0-2.0); HEMATOCRIT 37.1 % (35.0-51.0); LYMPH # 0.7 K/uL (1.0-4.3); LYMPH % 6.8 % (20.0-40.0); MEAN CELL VOLUME 96.9 fL (80.0-94.0); MEAN CORPUSCULAR HEMOGLOBIN 31.9 pg (27.0-31.0); MONO # 0.3 K/uL (0.0-0.8); MONO % 2.7 % (0.0-10.0); PLATELET COUNT 348 K/uL (130-400); RED CELL DISTRIBUTION WIDTH 14.7 % (11.5-14.5); WHITE BLOOD COUNT 10.3 K/uL (4.8-10.8)
[2016-08-27 08:33] LABS: CHLORIDE 104 mmol/L (98-107)
[2016-08-27 08:34] LABS: POTASSIUM 3.5 mmol/L (3.6-5.2); SODIUM 136 mmol/L (132-148)
[2016-08-27 08:36] LABS: ALKALINE PHOSPHATASE 62 U/L (38-126); ALT/SGPT 16 U/L (21-72); AST/SGOT 21 U/L (17-59); BILIRUBIN,TOTAL 0.4 mg/dL (0.2-1.3); BLOOD UREA NITROGEN 13 mg/dL (9-20); CARBON DIOXIDE 22 mmol/L (22-30); GFR AFRICAN-AMERICAN > 60; GLUCOSE,RANDOM 146 mg/dL (75-110); TOTAL PROTEIN 6.7 g/dL (6.3-8.3)
[2016-08-27 08:37] LABS: CALCIUM 8.5 mg/dl (8.6-10.4); MAGNESIUM 2.1 mg/dL (1.6-2.3); PHOSPHOROUS 3.4 mg/dL (2.5-4.5)
[2016-08-27] MEDS: guaiFENesin 600 mg ER Tab PO SCH ×2 (09:40→17:23)
[2016-08-27] MEDS: Enoxaparin 40 mg Syringe SC SCH (09:40)
[2016-08-27] MEDS ORDERED: Potassium Chloride 20 mEq ER Tab PO ONE (09:45)
[2016-08-27 09:49] LABS: NEUTROPHIL 92 % (50-75); REACTIVE LYMPHOCYTES 1 % (0-0); TOTAL CELLS COUNTED 100
[2016-08-27 09:50] LABS: LARGE PLATELETS PRESENT
[2016-08-27] MEDS: Multiple Vitamins Tab PO SCH (12:24)
[2016-08-27] MEDS: Moxifloxacin IV 400mg/250ml NS 400 MG/250 ML BAG IVPB SCH (17:21)
[2016-08-28] MEDS: Albuterol-Ipratrop 3 mg / 0.5 (3 ml) UD INH SCH ×6 (01:32→19:41)
[2016-08-28 06:46] LABS: CHLORIDE 101 mmol/L (98-107); POTASSIUM 4.1 mmol/L (3.6-5.2); SODIUM 133 mmol/L (132-148)
[2016-08-28 06:48] LABS: BILIRUBIN,TOTAL 0.5 mg/dL (0.2-1.3); GFR AFRICAN-AMERICAN > 60
[2016-08-28 06:49] LABS: ALKALINE PHOSPHATASE 65 U/L (38-126); ALT/SGPT 28 U/L (21-72); AST/SGOT 26 U/L (17-59); BLOOD UREA NITROGEN 15 mg/dL (9-20); CALCIUM 8.8 mg/dl (8.6-10.4); CARBON DIOXIDE 25 mmol/L (22-30); GLUCOSE,RANDOM 139 mg/dL (75-110); PHOSPHOROUS 3.3 mg/dL (2.5-4.5); TOTAL PROTEIN 6.4 g/dL (6.3-8.3)
[2016-08-28 06:50] LABS: MAGNESIUM 2.1 mg/dL (1.6-2.3)
[2016-08-28 07:46] LABS: BASO % 0.5 % (0.0-2.0); HEMATOCRIT 40.3 % (35.0-51.0); LYMPH # 0.9 K/uL (1.0-4.3); LYMPH % 10.1 % (20.0-40.0); MEAN CELL VOLUME 96.8 fL (80.0-94.0); MEAN CORPUSCULAR HEMOGLOBIN 32.2 pg (27.0-31.0); MEAN CORPUSCULAR HGB CONC 33.3 g/dL (33.0-37.0); MEAN PLATELET VOLUME 8.1 fL (7.2-11.7); MONO # 0.4 K/uL (0.0-0.8); MONO % 5.1 % (0.0-10.0); NRBC % 0.2 % (0.0-2.0); RED CELL DISTRIBUTION WIDTH 14.9 % (11.5-14.5); WHITE BLOOD COUNT 8.5 K/uL (4.8-10.8)
[2016-08-28] MEDS: guaiFENesin 600 mg ER Tab PO SCH (18:00)
[2016-08-28] MEDS: Moxifloxacin IV 400mg/250ml NS 400 MG/250 ML BAG IVPB SCH (18:00)
--- NOTE | 2016-08-28 19:59 | CP.PCM.PCO ---
Physician Communication Note - Physician Communication Note Physician Communication Note: written note in chart secondary to meditech outage
[2016-08-28] MEDS ORDERED: Promethazine/Cod 6.25mg-10mg/5ml Syr UD PO PRN (20:45)
[2016-08-28] MEDS: MethylPREDNISolone 40 mg Vial IVP SCH (22:54)
[2016-08-29 00:24] LABS: MEAN CELL VOLUME 96.5 fL (80.0-94.0); MEAN CORPUSCULAR HEMOGLOBIN 32.1 pg (27.0-31.0); MEAN CORPUSCULAR HGB CONC 33.3 g/dL (33.0-37.0); MEAN PLATELET VOLUME 8.3 fL (7.2-11.7); RED CELL DISTRIBUTION WIDTH 14.7 % (11.5-14.5); WHITE BLOOD COUNT 8.6 K/uL (4.8-10.8)
[2016-08-29] MEDS: Albuterol-Ipratrop 3 mg / 0.5 (3 ml) UD INH SCH ×4 (00:45→11:15)
[2016-08-29 07:56] LABS: CHLORIDE 99 mmol/L (98-107); POTASSIUM 4.1 mmol/L (3.6-5.2); SODIUM 134 mmol/L (132-148)
[2016-08-29 07:58] LABS: ALKALINE PHOSPHATASE 51 U/L (38-126); ALT/SGPT 24 U/L (21-72); AST/SGOT 17 U/L (17-59); BILIRUBIN,TOTAL 0.5 mg/dL (0.2-1.3); BLOOD UREA NITROGEN 12 mg/dL (9-20); CARBON DIOXIDE 26 mmol/L (22-30); GFR AFRICAN-AMERICAN > 60; TOTAL PROTEIN 6.3 g/dL (6.3-8.3)
[2016-08-29 07:59] LABS: CALCIUM 8.3 mg/dl (8.6-10.4); GLUCOSE,RANDOM 130 mg/dL (75-110); MAGNESIUM 2.2 mg/dL (1.6-2.3); PHOSPHOROUS 4.8 mg/dL (2.5-4.5)
--- NOTE | 2016-08-29 08:03 | CP.PCM.PN ---
Objective - Vital Signs/Intake and Output Vital Signs (last 24 hours): Temp Pulse Resp BP Pulse Ox 97.6 F 79 20 126/79 96 08/29/16 05:05 08/29/16 05:05 08/29/16 05:05 08/29/16 05:05 08/29/16 05:05 Intake and Output: 08/29/16 08/29/16 06:59 18:59 Intake Total 250 Output Total 1300 Balance -1050 - Medications Medications: Current Medications Albuterol/Ipratropium (Duoneb 3 Mg/0.5 Mg (3 Ml) Ud) 3 ml INH RQ4 [facility] Last Admin: 08/29/16 04:56 Dose: Not Given Enoxaparin Sodium (Lovenox) 40 mg SC DAILY [facility] Last Admin: 08/27/16 09:40 Dose: 40 mg Folic Acid (Folic Acid) 1 mg PO DAILY [facility] Last Admin: 08/27/16 12:23 Dose: 1 mg Guaifenesin (Mucinex La) 600 mg PO BID [facility] Last Admin: 08/28/16 18:00 Dose: Not Given Moxifloxacin HCl (Avelox Iv 400mg/250ml Ns) 400 mg in 250 mls @ 167 mls/hr IVPB Q24H [facility] Last Admin: 08/28/16 18:00 Dose: Not Given Lorazepam (Ativan) 1 mg IVP Q2H PRN PRN Reason: Symptoms of alcohol withdrawl Methylprednisolone (Solu-Medrol) 40 mg IVP Q12 [facility] Last Admin: 08/28/16 22:54 Dose: 40 mg Multivitamins (Hexavitamin) 1 tab PO DAILY [facility] Last Admin: 08/27/16 12:24 Dose: 1 tab Naproxen (Anaprox) 275 mg PO Q12 PRN PRN Reason: Pain, moderate (4-7) Last Admin: 08/26/16 20:46 Dose: 275 mg Ondansetron HCl (Zofran Inj) 4 mg IVP Q6H PRN PRN Reason: Nausea/Vomiting Pantoprazole Sodium (Protonix Inj) 40 mg IVP DAILY [facility] Last Admin: 08/27/16 09:40 Dose: 40 mg Promethazine HCl/Codeine (Phenergan/Codeine Oral Syrup) 12.5 ml PO Q4 PRN PRN Reason: Cough Saccharomyces Boulardii (Florastor) 250 mg PO BID [facility] Thiamine HCl (Vitamin B1 Tab) 100 mg PO DAILY [facility] Last Admin: 08/27/16 12:23 Dose: 100 mg - Labs Labs: 08/28/16 19:01 08/29/16 07:05 PT 11.7 SECONDS (9.7-12.2) 08/24/16 15:31 INR 1.0 08/24/16 15:31 APTT 32 SECONDS (21-34) 08/24/16 15:31
--- NOTE | 2016-08-29 09:34 | CP.PCM.CON ---
History of Present Illness - History of Present Illness History of Present Illness: Asked by hospitalist team for a GI consultation on this patient CC: dizziness/ETOH intoxication HPI: This is a 75 year old male with h/o COPD, ETOH abuse who is admitted with ETOH intoxication. We are consulted for evaluation of abdominal pain and colitis on CT. The patient states that he has been having abdominal pain for the past 4 days, described as lower abdomen both right/left sided. Pain is not necessarily associated with meals. He reports loose BM, 2-3x/yesterday, non bloody. No nausea or vomiting. No fever/chills. CT scan showed diverticulosis and wall thickening of cecum/right colon. He denies any prior colonoscopy. No FH of GI malignancy. No reported recent antibiotic usage. PMHx/PSHx: as above Allergies: NKDA ROS: as per HPI, otherwise negative FH: denies FH of GI malignancy SH: +tobacco use, ETOH abuse (reports drinking 1 pint of liquor on weekends), no illicits Review of Systems - Constitutional Constitutional: absent: Fever, Weight Loss - Cardiovascular Cardiovascular: absent: Chest Pain - Respiratory Respiratory: absent: Cough, Dyspnea - Gastrointestinal Gastrointestinal: As Per HPI - Genitourinary Genitourinary: absent: Difficulty Urinating, Dysuria - Musculoskeletal Musculoskeletal: absent: Atrophy, Back Pain - Neurological Neurological: Dizziness. absent: Weakness - Psychiatric Psychiatric: absent: Anxiety, Depression Past Patient History - Tetanus Immunizations Tetanus Immunization: Unknown - Past Medical History & Family History Past Medical History?: Yes - Past Social History Smoking Status: Heavy Smoker > 10 Cigarettes Daily - CARDIAC Hx Cardiac Disorders: No - PULMONARY Hx Respiratory Disorders: Yes Hx Chronic Obstructive Pulmonary Disease (COPD): Yes - NEUROLOGICAL Hx Neurological Disorder: No - HEENT Hx HEENT Problems: No - RENAL Hx Chronic Kidney Disease: No - ENDOCRINE/METABOLIC Hx Endocrine Disorders: No - HEMATOLOGICAL/ONCOLOGICAL Hx Blood Disorders: No - INTEGUMENTARY Hx Dermatological Problems: No - MUSCULOSKELETAL/RHEUMATOLOGICAL Hx Musculoskeletal Disorders: No Hx Falls: Yes - GASTROINTESTINAL Hx Gastrointestinal Disorders: No - GENITOURINARY/GYNECOLOGICAL Hx Genitourinary Disorders: No - PSYCHIATRIC Hx Psychophysiologic Disorder: No Hx Substance Use: No - SURGICAL HISTORY Hx Surgeries: No - ANESTHESIA Hx Anesthesia: No Hx Anesthesia Reactions: No Meds Allergies/Adverse Reactions: Allergies Allergy/AdvReac Type Severity Reaction Status Date / Time No Known Allergies Allergy Verified 02/01/16 11:46 - Medications Medications: Current Medications Albuterol/Ipratropium (Duoneb 3 Mg/0.5 Mg (3 Ml) Ud) 3 ml INH RQ4 [facility] Last Admin: 08/29/16 08:03 Dose: 3 ml Enoxaparin Sodium (Lovenox) 40 mg SC DAILY [facility] Last Admin: 08/27/16 09:40 Dose: 40 mg Folic Acid (Folic Acid) 1 mg PO DAILY [facility] Last Admin: 08/27/16 12:23 Dose: 1 mg Guaifenesin (Mucinex La) 600 mg PO BID [facility] Last Admin: 08/28/16 18:00 Dose: Not Given Moxifloxacin HCl (Avelox Iv 400mg/250ml Ns) 400 mg in 250 mls @ 167 mls/hr IVPB Q24H [facility] Last Admin: 08/28/16 18:00 Dose: Not Given Lorazepam (Ativan) 1 mg IVP Q2H PRN PRN Reason: Symptoms of alcohol withdrawl Methylprednisolone (Solu-Medrol) 40 mg IVP Q12 [facility] Last Admin: 08/28/16 22:54 Dose: 40 mg Multivitamins (Hexavitamin) 1 tab PO DAILY [facility] Last Admin: 08/27/16 12:24 Dose: 1 tab Naproxen (Anaprox) 275 mg PO Q12 PRN PRN Reason: Pain, moderate (4-7) Last Admin: 08/26/16 20:46 Dose: 275 mg Ondansetron HCl (Zofran Inj) 4 mg IVP Q6H PRN PRN Reason: Nausea/Vomiting Pantoprazole Sodium (Protonix Ec Tab) 40 mg PO DAILY [facility] Promethazine HCl/Codeine (Phenergan/Codeine Oral Syrup) 12.5 ml PO Q4 PRN PRN Reason: Cough Saccharomyces Boulardii (Florastor) 250 mg PO BID [facility] Thiamine HCl (Vitamin B1 Tab) 100 mg PO DAILY [facility] Last Admin: 08/27/16 12:23 Dose: 100 mg Physical Exam - Constitutional Appears: No Acute Distress - Eye Exam Eye Exam: absent: Scleral icterus - ENT Exam ENT Exam: Mucous Membranes Moist - Respiratory Exam Additional comments: coarse b/l breath sounds with wheezing - Cardiovascular Exam Cardiovascular Exam: +S1, +S2 - GI/Abdominal Exam Additional comments: abdomen soft, mild tenderness to deep palpation in lower abdomen without rebound or guarding, bowel sounds present - Extremities Exam Extremities exam: Negative for: pedal edema - Neurological Exam Neurological exam: Alert, Oriented x3 - Skin Skin Exam: Dry Results - Vital Signs Recent Vital Signs: Last Vital Signs Temp 97.9 F 08/29/16 07:35 Pulse 80 08/29/16 07:35 Resp 22 08/29/16 07:35 BP 115/77 08/29/16 07:35 Pulse Ox 99 08/29/16 07:35 - Labs Result Diagrams: 08/28/16 19:01 08/29/16 07:05 Labs: Laboratory Results - last 24 hr 08/28/16 08/28/16 08/28/16 04:00 16:00 16:00 WBC 8.6 RBC 4.36 L Hgb 14.0 Hct 42.0 MCV 96.5 H MCH 32.1 H MCHC 33.3 RDW 14.7 H Plt Count 424 H MPV 8.3 Neut % (Auto) Lymph % (Auto) [place] % (Auto) Eos % (Auto) Baso % (Auto) Neut # Lymph # [place] # Eos # Baso # Sodium 133 Potassium 4.1 Chloride 101 Carbon Dioxide 25 Anion Gap 12 BUN 15 Creatinine 0.7 L Est GFR ( Amer) > 60 Est GFR (Non-Af Amer) > 60 Random Glucose 139 H Calcium 8.8 Phosphorus 3.3 Magnesium 2.1 2.2 Total Bilirubin 0.5 AST 26 ALT 28 Alkaline Phosphatase 65 Total Protein 6.4 Albumin 3.3 L Globulin 3.2 Albumin/Globulin Ratio 1.0 Lipase 08/28/16 08/29/16 19:01 07:05 WBC 8.5 RBC 4.16 L Hgb 13.4 Hct 40.3 MCV 96.8 H MCH 32.2 H MCHC 33.3 RDW 14.9 H Plt Count 371 MPV 8.1 Neut % (Auto) 84.3 H Lymph % (Auto) 10.1 L [place] % (Auto) 5.1 Eos % (Auto) 0.0 Baso % (Auto) 0.5 Neut # 7.2 H Lymph # 0.9 L [place] # 0.4 Eos # 0.0 Baso # 0.0 Sodium 134 Potassium 4.1 Chloride 99 Carbon Dioxide 26 Anion Gap 13 BUN 12 Creatinine 0.7 L Est GFR ( Amer) > 60 Est GFR (Non-Af Amer) > 60 Random Glucose 130 H Calcium 8.3 L Phosphorus 4.8 H Magnesium 2.2 Total Bilirubin 0.5 AST 17 D ALT 24 Alkaline Phosphatase 51 Total Protein 6.3 Albumin 3.2 L Globulin 3.1 Albumin/Globulin Ratio 1.0 Lipase 18 L Assessment & Plan - Assessment and Plan (Free Text) Assessment: This is a 75 year old male with h/o COPD, ETOH abuse who is admitted with ETOH intoxication, abdominal pain with colitis on CT. Cdiff toxin negative. Plan: Continue supportive care Management of COPD as per primary medical team Follow up stool studies Pain control as needed Advance diet slowly as tolerated Patient will need colonoscopy in 6-8 weeks after resolution of acute symptoms
[2016-08-29] MEDS: Multiple Vitamins Tab PO SCH (09:53)
[2016-08-29] MEDS: Enoxaparin 40 mg Syringe SC SCH (09:53)
[2016-08-29] MEDS: Saccharomyces Boulardi 250 mg Cap PO SCH ×2 (09:53→17:39)
[2016-08-29] MEDS: guaiFENesin 600 mg ER Tab PO SCH ×2 (09:54→17:39)
[2016-08-29] MEDS: MethylPREDNISolone 40 mg Vial IVP SCH (09:54)
[2016-08-29] MEDS ORDERED: Pantoprazole 40 mg EC Tab PO SCH (10:00)
--- NOTE | 2016-08-29 14:48 | CP.PCM.DIS ---
<Ros Bill - Last Filed: 09/22/16 00:39> Provider - Provider Date of Admission: 08/26/16 13:44 Attending physician: Marquez Rueda MD Primary care physician: None Consults: Dr Kayleigh YEH Time Spent in preparation of Discharge (in minutes): 45 Hospital Course - Lab Results Lab Results: Most Recent Lab Values WBC 8.5 K/uL (4.8-10.8) 08/28/16 19:01 RBC 4.16 Mil/uL (4.40-5.90) L 08/28/16 19:01 Hgb 13.4 g/dL (12.0-18.0) 08/28/16 19:01 Hct 40.3 % (35.0-51.0) 08/28/16 19:01 MCV 96.8 fL (80.0-94.0) H 08/28/16 19:01 MCH 32.2 pg (27.0-31.0) H 08/28/16 19:01 MCHC 33.3 g/dL (33.0-37.0) 08/28/16 19:01 RDW 14.9 % (11.5-14.5) H 08/28/16 19:01 Plt Count 371 K/uL (130-400) 08/28/16 19:01 MPV 8.1 fL (7.2-11.7) 08/28/16 19:01 Neut % (Auto) 84.3 % (50.0-75.0) H 08/28/16 19:01 Lymph % (Auto) 10.1 % (20.0-40.0) L 08/28/16 19:01 [place] % (Auto) 5.1 % (0.0-10.0) 08/28/16 19:01 Eos % (Auto) 0.0 % (0.0-4.0) 08/28/16 19:01 Baso % (Auto) 0.5 % (0.0-2.0) 08/28/16 19:01 Neut # 7.2 K/uL (1.8-7.0) H 08/28/16 19:01 Lymph # 0.9 K/uL (1.0-4.3) L 08/28/16 19:01 [place] # 0.4 K/uL (0.0-0.8) 08/28/16 19:01 Eos # 0.0 K/uL (0.0-0.7) 08/28/16 19:01 Baso # 0.0 K/uL (0.0-0.2) 08/28/16 19:01 Neutrophils % (Manual) 92 % (50-75) H 08/27/16 08:03 Band Neutrophils % 1 % (0-2) 08/26/16 08:32 Lymphocytes % (Manual) 4 % (20-40) L 08/27/16 08:03 Reactive Lymphs % 1 % (0-0) H 08/27/16 08:03 Monocytes % (Manual) 3 % (0-10) 08/27/16 08:03 Platelet Estimate Normal (NORMAL) 08/27/16 08:03 Large Platelets Present 08/27/16 08:03 RBC Morphology Normal 08/26/16 08:32 Poikilocytosis (manual Slight 08/27/16 08:03 Target Cells Slight 08/27/16 08:03 PT 11.7 SECONDS (9.7-12.2) 08/24/16 15:31 INR 1.0 08/24/16 15:31 APTT 32 SECONDS (21-34) 08/24/16 15:31 Puncture Site Rb 08/24/16 15:30 pCO2 43 mm/Hg (35-45) 08/24/16 15:30 pO2 104 mm/Hg (80-100) H 08/24/16 15:30 HCO3 22.4 mmol/L (21-28) 08/24/16 15:30 ABG pH 7.33 (7.35-7.45) L 08/24/16 15:30 ABG Total CO2 24.0 mmol/L (22-28) 08/24/16 15:30 ABG O2 Saturation 98.9 % (95-98) H 08/24/16 15:30 ABG Base Excess -3.2 mmol/L (-2.0-3.0) L 08/24/16 15:30 Tai Test N 08/24/16 15:30 ABG Potassium 3.2 mmol/L (3.6-5.2) L 08/24/16 15:30 A-a O2 Difference 99.0 mm/Hg 08/24/16 15:30 Respiratory Index 1.0 08/24/16 15:30 Sodium 141.0 mmol/l (132-148) 08/24/16 15:30 Chloride 110.0 mmol/L (98-107) H 08/24/16 15:30 Glucose 105 mg/dl (75-110) 08/24/16 15:30 Lactate 1.9 mmol/L (0.7-2.1) 08/24/16 15:30 FiO2 36.0 % 08/24/16 15:30 Sodium 134 mmol/L (132-148) 08/29/16 07:05 Potassium 4.1 mmol/L (3.6-5.2) 08/29/16 07:05 Chloride 99 mmol/L (98-107) 08/29/16 07:05 Carbon Dioxide 26 mmol/L (22-30) 08/29/16 07:05 Anion Gap 13 (10-20) 08/29/16 07:05 BUN 12 mg/dL (9-20) 08/29/16 07:05 Creatinine 0.7 MG/DL (0.8-1.5) L 08/29/16 07:05 Est GFR ( Amer) > 60 08/29/16 07:05 Est GFR (Non-Af Amer) > 60 08/29/16 07:05 Random Glucose 130 mg/dL (75-110) H 08/29/16 07:05 Calcium 8.3 mg/dl (8.6-10.4) L 08/29/16 07:05 Phosphorus 4.8 mg/dL (2.5-4.5) H 08/29/16 07:05 Magnesium 2.2 mg/dL (1.6-2.3) 08/29/16 07:05 Total Bilirubin 0.5 mg/dL (0.2-1.3) 08/29/16 07:05 AST 17 U/L (17-59) D 08/29/16 07:05 ALT 24 U/L (21-72) 08/29/16 07:05 Alkaline Phosphatase 51 U/L (38-126) 08/29/16 07:05 Ammonia 17 umol/L (9-33) 08/26/16 08:32 Troponin I < 0.0120 ng/mL (0.00-0.120) 08/24/16 15:31 NT-Pro-B Natriuret Pep 66.2 pg/mL (0-900) 08/24/16 15:31 Total Protein 6.3 g/dL (6.3-8.3) 08/29/16 07:05 Albumin 3.2 g/dL (3.5-5.0) L 08/29/16 07:05 Globulin 3.1 gm/dL (2.2-3.9) 08/29/16 07:05 Albumin/Globulin Ratio 1.0 (1.0-2.1) 08/29/16 07:05 Lipase 18 U/L (23-300) L 08/29/16 07:05 Arterial Blood Potassium 3.2 mmol/L (3.6-5.2) L 08/24/16 15:30 Urine Color Straw (YELLOW) 08/24/16 17:06 Urine Clarity Clear (Clear) 08/24/16 17:06 Urine pH 6.0 (5.0-8.0) 08/24/16 17:06 Ur Specific [place] 1.003 (1.003-1.030) 08/24/16 17:06 Urine Protein Negative mg/dL (NEGATIVE) 08/24/16 17:06 Urine Glucose (UA) Normal mg/dL (Normal) 08/24/16 17:06 Urine Ketones Negative mg/dL (NEGATIVE) 08/24/16 17:06 Urine Blood Negative (NEGATIVE) 08/24/16 17:06 Urine Nitrate Negative (NEGATIVE) 08/24/16 17:06 Urine Bilirubin Negative (NEGATIVE) 08/24/16 17:06 Urine Urobilinogen Normal mg/dL (0.2-1.0) 08/24/16 17:06 Ur Leukocyte Esterase Neg [place]y/uL (Negative) 08/24/16 17:06 Urine WBC (Auto) < 1 /hpf (0-5) 08/24/16 17:06 Ur Squamous Epith Cells < 1 /hpf (0-5) 08/24/16 17:06 Stool Leukocytes, Qual Negative (NEGATIVE) 08/26/16 06:00 Urine Opiates Screen Negative (NEGATIVE) 08/24/16 17:06 Urine Methadone Screen Negative (NEGATIVE) 08/24/16 17:06 Ur Barbiturates Screen Negative (NEGATIVE) 08/24/16 17:06 Ur Phencyclidine Scrn Negative (NEGATIVE) 08/24/16 17:06 Ur Amphetamines Screen Negative (NEGATIVE) 08/24/16 17:06 U Benzodiazepines Scrn Negative (NEGATIVE) 08/24/16 17:06 U Oth Cocaine Metabols Negative (NEGATIVE) 08/24/16 17:06 U Cannabinoids Screen Negative (NEGATIVE) 08/24/16 17:06 Alcohol, Quantitative 270 mg/dl (0-10) H 08/24/16 15:31 C. difficile Ag & Toxin Negative (NEGATIVE) 08/26/16 06:00 Ur L.pneumophila Ag Negative (NEGATIVE) 08/24/16 17:49 Mycoplasma pneumon IgM Negative (NEGATIVE) 08/24/16 17:49 - Hospital Course Hospital Course: Upon Admission 75 year old male with PMHx of COPD and alcohol use disorder presents to the ED after being found intoxicated in public. At time of examination the patient is still intoxicated and not cooperative with questions. Patient can not say why he is in the ED and changes the subject. Patient unable to quantify how much alcohol he drank this morning. Will attempt to obtain history of ROS when patient is sober. Other history obtained from patient's previous records. Patient was admitted to the floors for possible pneumonia. CXR showed prominent lung markings and small reticular opacities. Blood culture negative x 2, Legionella negative, Mycoplamsa negative. Patient was also placed on CIWA protocol as he had an alcohol level of 270. His hypotension resolved. As patient was complaining of abdominal pain a abdominal x-ray was done which was negative and CT abdomen/pelvis was done which showed extensive diverticulosis throughout colon without CT evidence of acute diverticulitis. Question colonic wall thickening at level of cecum/Right colon which may be seen in setting of colitis; correlate clinically. Recommended colonoscopy on f/u. Emphysema. Chronic fibrotic IS diseae. Right lower lobe atelectasis/pneumonia. Bilateral hydroceles. Patient was counseled multiple times on alcohol cessation. On day of discharge patient was deemed medically stale for discharge. 1) Pneumonia: continue Abx at [facility] 2) Hypotension: resolved 3) hx of COPD: continue meds 4) Alcohol use disorder: counseled extensively on alcohol cessation 5) Abdominal pain: resolved- workup was negative Upon Discharge Patient stable for discharge to [facility] as per Dr. Rueda after tolerating diet. Patient to take medications as prescribed. Patient to follow up with PMD within 7 days. If symptoms persist or worsen patient to return to ED immediately. Plan discussed with patient who understands and agrees. Patient to abstain from drinking alcohol Discharge Exam - Head Exam Head Exam: ATRAUMATIC, NORMAL INSPECTION, NORMOCEPHALIC - Eye Exam Eye Exam: EOMI, Normal appearance, PERRL. absent: Conjunctival injection, Scleral icterus Pupil Exam: NORMAL ACCOMODATION - ENT Exam ENT Exam: Mucous Membranes Dry - Neck Exam Neck exam: Full Rom, Normal Inspection - Respiratory Exam Respiratory Exam: Rhonchi, Wheezes, NORMAL BREATHING PATTERN. absent: Accessory Muscle Use, Rales, Respiratory Distress - Cardiovascular Exam Cardiovascular Exam: REGULAR RHYTHM, RRR, +S1, +S2 - GI/Abdominal Exam GI & Abdominal Exam: Normal Bowel Sounds, Soft, Tenderness (to palpation) - Extremities Exam Extremities exam: joint swelling (digits b/l) - Back Exam Back exam: NORMAL INSPECTION. absent: rash noted - Neurological Exam Neurological exam: Alert - Psychiatric Exam Psychiatric exam: Normal Affect Additional comments: irritable - Skin Skin Exam: Dry, Intact, Normal Color, Warm Discharge Plan - Discharge Medications Prescriptions: Moxifloxacin IV 400mg/250ml NS [Avelox IV 400mg/250ml NS] 400 mg IVPB DAILY #4 bag Prednisone [Deltasone] 20 mg PO DAILY #4 tablet - Follow Up Plan Condition: FAIR Disposition: REHAB FACILITY/REHAB UNIT Instructions: COPD (Chronic Obstructive Pulmonary Disease) (DC), Alcohol Intoxication (DC), Abuse of Alcohol (DC), Altered Mental Status (GEN) <Marquez Rueda - Last Filed: 10/05/16 11:27> Provider - Provider Date of Admission: 08/26/16 13:44 Attending physician: Marquez Rueda MD Hospital Course - Lab Results Lab Results: Micro Results 08/27/16 03:33 Sputum Gram Stain - Final 08/27/16 03:33 Sputum Sputum Culture - Final NORMAL ORAL CAITLYN Most Recent Lab Values WBC 8.5 K/uL (4.8-10.8) 08/28/16 19:01 RBC 4.16 Mil/uL (4.40-5.90) L 08/28/16 19:01 Hgb 13.4 g/dL (12.0-18.0) 08/28/16 19:01 Hct 40.3 % (35.0-51.0) 08/28/16 19:01 MCV 96.8 fL (80.0-94.0) H 08/28/16 19:01 MCH 32.2 pg (27.0-31.0) H 08/28/16 19:01 MCHC 33.3 g/dL (33.0-37.0) 08/28/16 19:01 RDW 14.9 % (11.5-14.5) H 08/28/16 19:01 Plt Count 371 K/uL (130-400) 08/28/16 19:01 MPV 8.1 fL (7.2-11.7) 08/28/16 19:01 Neut % (Auto) 84.3 % (50.0-75.0) H 08/28/16 19:01 Lymph % (Auto) 10.1 % (20.0-40.0) L 08/28/16 19:01 [place] % (Auto) 5.1 % (0.0-10.0) 08/28/16 19:01 Eos % (Auto) 0.0 % (0.0-4.0) 08/28/16 19:01 Baso % (Auto) 0.5 % (0.0-2.0) 08/28/16 19:01 Neut # 7.2 K/uL (1.8-7.0) H 08/28/16 19:01 Lymph # 0.9 K/uL (1.0-4.3) L 08/28/16 19:01 [place] # 0.4 K/uL (0.0-0.8) 08/28/16 19:01 Eos # 0.0 K/uL (0.0-0.7) 08/28/16 19:01 Baso # 0.0 K/uL (0.0-0.2) 08/28/16 19:01 Neutrophils % (Manual) 92 % (50-75) H 08/27/16 08:03 Band Neutrophils % 1 % (0-2) 08/26/16 08:32 Lymphocytes % (Manual) 4 % (20-40) L 08/27/16 08:03 Reactive Lymphs % 1 % (0-0) H 08/27/16 08:03 Monocytes % (Manual) 3 % (0-10) 08/27/16 08:03 Platelet Estimate Normal (NORMAL) 08/27/16 08:03 Large Platelets Present 08/27/16 08:03 RBC Morphology Normal 08/26/16 08:32 Poikilocytosis (manual Slight 08/27/16 08:03 Target Cells Slight 08/27/16 08:03 PT 11.7 SECONDS (9.7-12.2) 08/24/16 15:31 INR 1.0 08/24/16 15:31 APTT 32 SECONDS (21-34) 08/24/16 15:31 Puncture Site Rb 08/24/16 15:30 pCO2 43 mm/Hg (35-45) 08/24/16 15:30 pO2 104 mm/Hg (80-100) H 08/24/16 15:30 HCO3 22.4 mmol/L (21-28) 08/24/16 15:30 ABG pH 7.33 (7.35-7.45) L 08/24/16 15:30 ABG Total CO2 24.0 mmol/L (22-28) 08/24/16 15:30 ABG O2 Saturation 98.9 % (95-98) H 08/24/16 15:30 ABG Base Excess -3.2 mmol/L (-2.0-3.0) L 08/24/16 15:30 Tai Test N 08/24/16 15:30 ABG Potassium 3.2 mmol/L (3.6-5.2) L 08/24/16 15:30 A-a O2 Difference 99.0 mm/Hg 08/24/16 15:30 Respiratory Index 1.0 08/24/16 15:30 Sodium 141.0 mmol/l (132-148) 08/24/16 15:30 Chloride 110.0 mmol/L (98-107) H 08/24/16 15:30 Glucose 105 mg/dl (75-110) 08/24/16 15:30 Lactate 1.9 mmol/L (0.7-2.1) 08/24/16 15:30 FiO2 36.0 % 08/24/16 15:30 Sodium 134 mmol/L (132-148) 08/29/16 07:05 Potassium 4.1 mmol/L (3.6-5.2) 08/29/16 07:05 Chloride 99 mmol/L (98-107) 08/29/16 07:05 Carbon Dioxide 26 mmol/L (22-30) 08/29/16 07:05 Anion Gap 13 (10-20) 08/29/16 07:05 BUN 12 mg/dL (9-20) 08/29/16 07:05 Creatinine 0.7 MG/DL (0.8-1.5) L 08/29/16 07:05 Est GFR ( Amer) > 60 08/29/16 07:05 Est GFR (Non-Af Amer) > 60 08/29/16 07:05 Random Glucose 130 mg/dL (75-110) H 08/29/16 07:05 Calcium 8.3 mg/dl (8.6-10.4) L 08/29/16 07:05 Phosphorus 4.8 mg/dL (2.5-4.5) H 08/29/16 07:05 Magnesium 2.2 mg/dL (1.6-2.3) 08/29/16 07:05 Total Bilirubin 0.5 mg/dL (0.2-1.3) 08/29/16 07:05 AST 17 U/L (17-59) D 08/29/16 07:05 ALT 24 U/L (21-72) 08/29/16 07:05 Alkaline Phosphatase 51 U/L (38-126) 08/29/16 07:05 Ammonia 17 umol/L (9-33) 08/26/16 08:32 Troponin I < 0.0120 ng/mL (0.00-0.120) 08/24/16 15:31 NT-Pro-B Natriuret Pep 66.2 pg/mL (0-900) 08/24/16 15:31 Total Protein 6.3 g/dL (6.3-8.3) 08/29/16 07:05 Albumin 3.2 g/dL (3.5-5.0) L 08/29/16 07:05 Globulin 3.1 gm/dL (2.2-3.9) 08/29/16 07:05 Albumin/Globulin Ratio 1.0 (1.0-2.1) 08/29/16 07:05 Lipase 18 U/L (23-300) L 08/29/16 07:05 Arterial Blood Potassium 3.2 mmol/L (3.6-5.2) L 08/24/16 15:30 Urine Color Straw (YELLOW) 08/24/16 17:06 Urine Clarity Clear (Clear) 08/24/16 17:06 Urine pH 6.0 (5.0-8.0) 08/24/16 17:06 Ur Specific [place] 1.003 (1.003-1.030) 08/24/16 17:06 Urine Protein Negative mg/dL (NEGATIVE) 08/24/16 17:06 Urine Glucose (UA) Normal mg/dL (Normal) 08/24/16 17:06 Urine Ketones Negative mg/dL (NEGATIVE) 08/24/16 17:06 Urine Blood Negative (NEGATIVE) 08/24/16 17:06 Urine Nitrate Negative (NEGATIVE) 08/24/16 17:06 Urine Bilirubin Negative (NEGATIVE) 08/24/16 17:06 Urine Urobilinogen Normal mg/dL (0.2-1.0) 08/24/16 17:06 Ur Leukocyte Esterase Neg Toby/uL (Negative) 08/24/16 17:06 Urine WBC (Auto) < 1 /hpf (0-5) 08/24/16 17:06 Ur Squamous Epith Cells < 1 /hpf (0-5) 08/24/16 17:06 Stool Leukocytes, Qual Negative (NEGATIVE) 08/26/16 06:00 Urine Opiates Screen Negative (NEGATIVE) 08/24/16 17:06 Urine Methadone Screen Negative (NEGATIVE) 08/24/16 17:06 Ur Barbiturates Screen Negative (NEGATIVE) 08/24/16 17:06 Ur Phencyclidine Scrn Negative (NEGATIVE) 08/24/16 17:06 Ur Amphetamines Screen Negative (NEGATIVE) 08/24/16 17:06 U Benzodiazepines Scrn Negative (NEGATIVE) 08/24/16 17:06 U Oth Cocaine Metabols Negative (NEGATIVE) 08/24/16 17:06 U Cannabinoids Screen Negative (NEGATIVE) 08/24/16 17:06 Alcohol, Quantitative 270 mg/dl (0-10) H 08/24/16 15:31 C. difficile Ag & Toxin Negative (NEGATIVE) 08/26/16 06:00 Ur L.pneumophila Ag Negative (NEGATIVE) 08/24/16 17:49 Mycoplasma pneumon IgM Negative (NEGATIVE) 08/24/16 17:49 Attending/Attestation - Attestation I have personally seen and examined this patient.: Yes I have fully participated in the care of the patient.: Yes I have reviewed all pertinent clinical information, including history, physical exam and plan: Yes Notes (Text): Patient seen and examined. Agree with the resident's evaluation, assessment and plan. 1) Pneumonia: continue Abx at [facility] 2) Hypotension: resolved 3) hx of COPD: continue meds 4) Alcohol use disorder: counseled extensively on alcohol cessation 5) Abdominal pain: resolved- workup was negative
[2016-08-29 15:37] VITALS: O2SAT 98
[2016-08-29 17:04] VITALS: BP 98/62; RESP 20; TEMP 98.2
[2016-08-29] MEDS: Moxifloxacin IV 400mg/250ml NS 400 MG/250 ML BAG IVPB SCH (18:00)
[2016-08-29 19:17] VITALS: PULSE 92
== END 2016-08-29 20:00 | DRG 178 ==
LOC: C.ER 14:44 → C.9E 16:27 → C.6T 20:21 → OBSVTOIN 08-26 13:44
PROVIDERS: ADMIT Internal Medicine; ATTEND Internal Medicine
PROC: HZ2ZZZZ Detoxification Services for Substance Abuse Treatment (ICD-10-PCS; principal; 2016-08-26)
DX: J69.0 Pneumonitis due to inhalation of food and vomit (principal); F10.230 Alcohol dependence with withdrawal, uncomplicated; I95.9 Hypotension, unspecified; J44.0 Chronic obstructive pulmonary disease with (acute) lower respiratory infection; M19.90 Unspecified osteoarthritis, unspecified site; F10.220 Alcohol dependence with intoxication, uncomplicated; Y90.8 Blood alcohol level of 240 mg/100 ml or more; F17.210 Nicotine dependence, cigarettes, uncomplicated; K52.9 Noninfective gastroenteritis and colitis, unspecified; K59.00 Constipation, unspecified; K57.90 Diverticulosis of intestine, part unspecified, without perforation or abscess without bleeding; N43.3 Hydrocele, unspecified; Z87.01 Personal history of pneumonia (recurrent)